=== PATIENT | male | born 1950 | race Caucasian/White ===

== ENCOUNTER 2018-06-19 07:35 | Outpatient (CLI) | payer MEDICARE, BC ==
--- NOTE | 2018-06-19 11:08 | CT ---
NONCONTRAST ENHANCED CT IMAGES OF THE ABDOMEN AND PELVIS: History: History of liver transplant. Liver malignancy C22.0, hemochromatosis E83.119. In addition, e valuate abdominal aorta. Date: 06-19-18 Comparison: 11-11-16 FINDINGS: CT images demonstrate an area of hyperdensity seen in the gallbladder compatible with numerous gallst ones. The hepatic parenchyma demonstrates an area of heterogeneity in the posterior aspect of the right hep atic lobe, hepatic segment 6. The pancreas is unremarkable. Adrenal glands demonstrate mild fullness of the right adrenal gland. Th e left adrenal gland is unremarkable. The kidneys are unremarkable with no evidence of masses. No evidence of renal calculi seen. No evidence of hydronephrosis is seen. The abdominal aorta demonstrates marked atherosclerotic calcification of the abdominal aorta. Calcifi cations extend into the celiac and SMA. There is also some atherosclerotic plaque at the origin of th e left renal artery. Colonic diverticulosis is present. No evidence of periaortic lymphadenopathy is seen. Vertebroplasty changes seen in the L3 vertebral body. There is also previous bone graft harvest seen in the left iliac bone. IMPRESSION: 1. Some area of increased density seen on the noncontrast enhanced images in the right hepatic lobe l esion. This may represent areas of calcification. 2. Cholelithiasis. 3. No other significant interval changes seen. POS: FRANCES
== END 2018-06-19 07:36 | disposition home or self-care (01) ==
LOC: BICCT 07:35
DX: E83.119 Hemochromatosis, unspecified (principal); C22.0 Liver cell carcinoma; I70.0 Atherosclerosis of aorta; K80.20 Calculus of gallbladder without cholecystitis without obstruction; Z76.82 Awaiting organ transplant status
CPT/HCPCS: 74150

== ENCOUNTER 2019-02-25 07:27 | Day surgery (SDC) | payer MEDICARE, BC ==
[2019-02-22 11:55] VITALS: BMI 31.2
[2019-02-25 10:46] LABS: #Eosinphils 0.1 thou/uL (0.0-0.7); #Lymphocytes 2.6 thou/uL (1.20-3.40); #Monocytes 0.6 thou/uL (0.11-0.59); #Neutrophils 2.6 thou/uL (1.40-6.50); %Basophils 0.8 % (0.0-1.0); %Eosinophils 1.4 % (0.0-10.0); %Lymphocytes 43.6 % (21.0-51.0); %Monocytes 9.5 % (0.0-10.0); %Neutrophils 44.7 % (42.0-75.0); Hemoglobin 10.3 g/dL (14.0-18.0); Mean Corpuscular HGB CONC 32.1 g/dL (32.0-36.0); Mean Corpuscular Hemoglobin 25.5 pg (27.0-31.0); Mean Corpuscular Volume 79.3 fL (78.0-98.0); Mean Platelet Volume 10.2 fL (7.4-10.4); Platelet Count 157 thou/uL (130-400); RBC Distribution Width 23.4 % (11.5-14.5); Red Blood Cell (RBC) Count 4.04 mill/uL (4.70-6.10); White Blood Cell (WBC) Count 5.9 thou/uL (4.8-10.8)
[2019-02-25 11:36] LABS: Anisocytosis SLIGHT = 6-15 cells (100X) (0-5/hpf); Hypochromia SLIGHT = 6-15 cells (100X) (0-5/hpf); MDiff Complete? YES; Platelet Morphology Comment Appears Adequate; Polychromasia SLIGHT = 2-3 cells (100X) (0-2/hpf)
--- NOTE | 2019-02-25 14:06 | OP ---
DATE OF PROCEDURE: 02/25/2019 PROCEDURE PERFORMED: Esophagogastroduodenoscopy with biopsy. PREOPERATIVE DIAGNOSES: Gastrointestinal bleed and anemia of acute blood loss. DESCRIPTION OF PROCEDURE: Informed consent was obtained from the patient. He was sedated with total intravenous anesthesia. The bite block was placed and the endoscope was advanced easily to the second portion of the duodenum and retroflexion was performed in the stomach. The esophagus had grade B erosive esophagitis. There was a 2 to 3 cm hiatal hernia present. The stomach had diffuse erythematous gastritis with signs of previous portal hypertensive gastropathy in the fundus. The gastric antrum was biopsied to rule out Helicobacter pylori. The antrum and distal body were biopsied. The pylorus and first and second portions of the duodenum were normal. The gastric mucosa was somewhat friable, but no actual bleeding source was identified. Retroflexed views in the stomach were unremarkable except for the hiatal hernia. IMPRESSION: 1. Grade B erosive esophagitis. 2. A 2-cm hiatal hernia. 3. Diffuse erythematous nonerosive gastritis, biopsied to rule out Helicobacter pylori. 4. No active bleeding source was identified with this exam. He did pass a dark stool this morning, but he has been taking iron. I will recheck the trend of his hemoglobin today and then bring him back to the clinic on Monday of this week to follow the trend of his hemoglobin. His Coumadin is held for now. His last colonoscopy was in August of 2016 with a few small adenomas removed. RECOMMENDATIONS: 1. Await histopathology. 2. Increase the omeprazole to twice daily for the next couple of weeks. 3. Check hemoglobin today and then come back to the clinic on Monday morning and with pre-clinic CBC as well. 4. If he continues to show signs of bleeding and decrease in hemoglobin, then we will plan for colonoscopy. 5. We will decide on timing of when to restart Coumadin depending on the trend of his hemoglobin and clinical course. Job ID: [id number]
[2019-02-25] MEDS ORDERED: PROPOFOL 200 MG/20 ML VIAL ONE (15:59)
== END 2019-02-25 11:20 | disposition home or self-care (01) ==
LOC: SDC 07:27
PROVIDERS: ATTEND Internal Medicine Gastroenterology
PROC: 0DB68ZX Excision of Stomach, Via Natural or Artificial Opening Endoscopic, Diagnostic (ICD-10-PCS; principal; 2019-02-25)
PROC: 0DB78ZX Excision of Stomach, Pylorus, Via Natural or Artificial Opening Endoscopic, Diagnostic (ICD-10-PCS; 2019-02-25)
DX: K31.89 Other diseases of stomach and duodenum (principal); K22.10 Ulcer of esophagus without bleeding; K92.1 Melena; D62 Acute posthemorrhagic anemia; K44.9 Diaphragmatic hernia without obstruction or gangrene; Z88.8 Allergy status to other drugs, medicaments and biological substances; Z88.1 Allergy status to other antibiotic agents; Z79.82 Long term (current) use of aspirin; Z79.01 Long term (current) use of anticoagulants; Z79.2 Long term (current) use of antibiotics; Z79.899 Other long term (current) drug therapy
CPT/HCPCS: 36415; 85025; 88305; 88312; J2704

== ENCOUNTER 2019-06-14 10:34 | Emergency (ER) | payer MEDICARE, BC ==
--- NOTE | 2019-06-14 11:18 | RAD ---
Right ankle 3 views HISTORY: Right ankle pain. Prior surgery. COMPARISON: 08/31/2016. FINDINGS: Complete loss of ankle joint space at the tibial plafond/talar dome is again demonstrated. Subchondral sclerosis and articular surface collapse have progressed. There is now mild to moderate eversion. Moderate osteoarthritic changes of the hindfoot. The 2 osteotomy screws through the distal tibia are again demonstrated. Fracture of and mild inferior angulation of the more inferior screw is unchanged from the 2007 exam. Osseous bridging has increased at the distal fibula/tibia. Osseous structures are diffusely demineralized. 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 Osteoporosis. Postoperative changes, stable
[2019-06-14] MEDS ORDERED: Morphine 4 MG/ML VIAL ONE (11:22)
== END 2019-06-14 12:14 | disposition home or self-care (01) ==
LOC: ERS 10:34
DX: S93.601A Unspecified sprain of right foot, initial encounter (principal); M19.071 Primary osteoarthritis, right ankle and foot; K21.9 Gastro-esophageal reflux disease without esophagitis; E78.5 Hyperlipidemia, unspecified; I10 Essential (primary) hypertension; Z79.899 Other long term (current) drug therapy; Z79.82 Long term (current) use of aspirin; Z79.51 Long term (current) use of inhaled steroids; Z79.891 Long term (current) use of opiate analgesic; W22.8XXA Striking against or struck by other objects, initial encounter
CPT/HCPCS: 96372; J2270

== ENCOUNTER 2022-05-23 13:04 | Outpatient (CLI) | payer MEDICARE, BC | END 2022-05-23 13:05 | disposition home or self-care (01) | LOC: LABBT 13:04 | PROVIDERS: ATTEND Orthopaedic Surgery | DX: Z20.822 Contact with and (suspected) exposure to COVID-19 (principal) | CPT/HCPCS: 87811 ==

== ENCOUNTER 2022-07-04 11:57 | Day surgery (SDC) | payer MEDICARE, BC ==
[2022-06-30 13:50] VITALS: BMI 33.5
[2022-07-04 13:11] LABS: #Eosinphils 0.1 thou/uL (0.0-0.7); #Lymphocytes 2.6 thou/uL (1.20-3.40); #Monocytes 0.6 thou/uL (0.11-0.59); #Neutrophils 3.6 thou/uL (1.40-6.50); %Basophils 0.2 % (0.0-1.0); %Lymphocytes 37.5 % (21.0-51.0); %Monocytes 8.2 % (0.0-10.0); %Neutrophils 53.1 % (42.0-75.0); Hemoglobin 12.4 g/dL (14.0-18.0); Mean Corpuscular HGB CONC 31.6 g/dL (32.0-36.0); Mean Corpuscular Hemoglobin 26.4 pg (27.0-31.0); Mean Corpuscular Volume 83.6 fl (78.0-98.0); Mean Platelet Volume 9.2 fL (7.4-10.4); Platelet Count 182 thou/uL (130-400); RBC Distribution Width 15.3 % (11.5-14.5); Red Blood Cell (RBC) Count 4.71 mill/uL (4.70-6.10); White Blood Cell (WBC) Count 6.8 thou/uL (4.8-10.8)
[2022-07-04] MEDS ORDERED: Ondansetron PF 4 MG/2 ML Vial ONE (13:15)
[2022-07-04] MEDS ORDERED: PROPOFOL 200 MG/20 ML VIAL ONE (13:15)
[2022-07-04] MEDS ORDERED: FENTANYL 50 MCG/ML 1 ML VIAL ONE (13:18)
[2022-07-04 13:37] LABS: Anion Gap 12 mmol/L (10-20); BUN (Urea Nitrogen) 19 mg/dL (8.4-25.7); Calc. Creatinine Clearance 87 mL/min (70-130); Calcium 9.5 mg/dL (7.8-10.44); Carbon Dioxide 27 mmol/L (23-31); Chloride 105 mmol/L (98-107); Estimated GFR 66; Glucose 105 mg/dL (83-110); Potassium 3.6 mmol/L (3.5-5.1); Sodium 140 mmol/L (136-145)
== END 2022-07-04 15:23 | disposition home or self-care (01) ==
LOC: MRI 11:57
PROVIDERS: ATTEND Orthopaedic Surgery
DX: M51.35 Other intervertebral disc degeneration, thoracolumbar region (principal); M51.36 Other intervertebral disc degeneration, lumbar region; M51.37 Other intervertebral disc degeneration, lumbosacral region; M43.16 Spondylolisthesis, lumbar region; M47.816 Spondylosis without myelopathy or radiculopathy, lumbar region; M48.061 Spinal stenosis, lumbar region without neurogenic claudication; M47.817 Spondylosis without myelopathy or radiculopathy, lumbosacral region; I48.91 Unspecified atrial fibrillation; E78.5 Hyperlipidemia, unspecified; K21.9 Gastro-esophageal reflux disease without esophagitis; Z79.01 Long term (current) use of anticoagulants; Z79.620 Long term (current) use of immunosuppressive biologic; Z79.621 Long term (current) use of calcineurin inhibitor; Z79.899 Other long term (current) drug therapy; Z88.1 Allergy status to other antibiotic agents; Z88.8 Allergy status to other drugs, medicaments and biological substances; Z94.4 Liver transplant status; Z98.890 Other specified postprocedural states
CPT/HCPCS: 72148; 80048; 85025; 93005; 93010; J2405; J2704; J3010

== ENCOUNTER 2024-02-18 08:00 | Emergency (ER) | payer MEDICARE, BC ==
[2024-02-18 08:54] LABS: #Basophils 0.03 10x3/uL (0.0-0.2); %Basophils 0.4 % (0.0-1.0); %Eosinophils 0.6 % (0.0-10.0); %Monocytes 7.1 % (0.0-10.0); %Neutrophils 69.2 % (42.0-75.0); Hematocrit 38.9 % (42.0-52.0); Hemoglobin 12.8 g/dL (14.0-18.0); Mean Corpuscular HGB CONC 32.9 g/dL (32.0-36.0); Mean Corpuscular Hemoglobin 28.3 pg (27.0-31.0); Mean Corpuscular Volume 86.1 fL (78.0-98.0); Mean Platelet Volume 11.3 fL (7.4-10.4); Platelet Count 185 10x3/uL (130-400); RBC Distribution Width 14.6 % (11.5-14.5); Red Blood Cell (RBC) Count 4.52 mill/uL (4.70-6.10)
[2024-02-18 09:16] LABS: Troponin I 0.015 ng/mL (< 0.028)
[2024-02-18] MEDS ORDERED: Furosemide 40 MG (4 mL) VIAL ONE (09:24)
[2024-02-18 10:04] LABS: ALT (SGPT) 14 U/L (8-55); AST (SGOT) 23 U/L (5-34); Albumin 3.4 g/dL (3.4-4.8); Alkaline Phosphatase 111 U/L (40-110); Anion Gap 12 mmol/L (10-20); BUN (Urea Nitrogen) 19 mg/dL (8.4-25.7); Bilirubin, Total 0.9 mg/dL (0.2-1.2); Calc. Creatinine Clearance 0 mL/min (70-130); Calcium 9.3 mg/dL (7.8-10.44); Carbon Dioxide 20 mmol/L (23-31); Chloride 112 mmol/L (98-107); Estimated GFR 75; Globulin 2.9 g/dL (2.4-3.5); Glucose 109 mg/dL (83-110); Potassium 4.3 mmol/L (3.5-5.1); Protein, Total 6.3 g/dL (5.8-8.1); Sodium 140 mmol/L (136-145)
== END 2024-02-18 11:04 | disposition home or self-care (01) ==
LOC: ERS 08:00
DX: I11.0 Hypertensive heart disease with heart failure (principal); I50.9 Heart failure, unspecified; E11.9 Type 2 diabetes mellitus without complications; I48.91 Unspecified atrial fibrillation; I25.10 Atherosclerotic heart disease of native coronary artery without angina pectoris; K21.9 Gastro-esophageal reflux disease without esophagitis; E78.5 Hyperlipidemia, unspecified; Z95.5 Presence of coronary angioplasty implant and graft; Z87.891 Personal history of nicotine dependence; Z79.01 Long term (current) use of anticoagulants; Z79.899 Other long term (current) drug therapy
CPT/HCPCS: 71045; 80053; 83880; 84484; 85025; 93005; J1940; 36415; 96374